=== PATIENT | male | born 1970 | race Caucasian/White ===

== ENCOUNTER 2018-03-23 19:19 | Emergency (ER) | payer OTHER ==
[2018-03-23] MEDS ORDERED: Lidocaine 1%* 5 ML VIAL INJ ONE (19:38)
--- NOTE | 2018-03-23 19:48 | UC ---
Laceration HPI - HPI Summary HPI Summary: 47-year-old male presents with laceration to his dorsal left hand. States he cut it on a piece of sharp metal while working on his car at home. States it was a a lot of bleeding immediately after the injury. He applied a pressure dressing prior to arrival and bleeding is presently under control. Tetanus is up-to-date. Denies any numbness, tingling, or weakness in the hand. - History Of Current Complaint Chief Complaint: UCLaceration Stated Complaint: HAND LACERATION Time Seen by Provider: 03/23/18 19:33 Hx Obtained From: Patient Laceration Location: Hand Mechanism Of Injury: Sharp Trauma Pain Intensity: 0 Aggravating Factors: Nothing Hands: 1 - Linear superficial laceration with triangle-shaped flap at the medial end. Bleeding controlled. No FB noted. Related History: Dominant Hand Right - Allergies/Home Medications Allergies/Adverse Reactions: Allergies Allergy/AdvReac Type Severity Reaction Status Date / Time No Known Allergies Allergy Verified 03/23/18 19:25 PMH/Surg Hx/FS Hx/Imm Hx Previously Healthy: Yes - denies significant past medical history - Surgical History Surgical History: Yes Surgery Procedure, Year, and Place: 2009 Appendectomy - Family History Family History: Noncontributory - Social History Occupation: Employed Full-time Lives: With Family Alcohol Use: Daily Alcohol Amount: 3-4 beers q daily Substance Use Type: None Smoking Status (MU): Heavy Every Day Tobacco Smoker Type: Cigarettes Amount Used/How Often: 1/2 ppd Length of Time of Smoking/Using Tobacco: age 15 yo Have You Smoked in the Last Year: Yes Household Exposure Type: Cigarettes - Immunization History Most Recent Tetanus Shot: 2017 Review of Systems Constitutional: Negative Skin: Other - See history of present illness Motor: Negative Neurovascular: Negative Musculoskeletal: Negative Is Patient Immunocompromised?: No All Other Systems Reviewed And Are Negative: Yes Physical Exam Triage Information Reviewed: Yes Appearance: Well-Appearing, No Pain Distress, Well-Nourished Vital Signs: Initial Vital Signs Temp 97.3 F 03/23/18 19:26 Pulse 92 10/19/18 19:26 Resp 18 03/23/18 19:26 BP 153/92 03/23/18 19:26 Pulse Ox 97 03/23/18 19:26 Respiratory: Positive: No respiratory distress Cardiovascular: Positive: Pulses Normal, Brisk Capillary Refill Musculoskeletal: Positive: Strength Intact, ROM Intact, Other: - Flexion and extension to left index finger intact to resistance. Neurological: Positive: Alert, Other: - Sensation intact distally Skin: Positive: significant lesion(s) - Superficial linear laceration to dorsal left hand. See diagram. Laceration Repair - Laceration Repair 1 Procedure Summary: Procedure note: Laceration repair left dorsal hand Informed consent was obtained before procedure started and the appropriate timeout was taken. The wound was copiously irrigated prior to wound repair. The area was prepped and draped in the usual sterile fashion. Local anesthesia was achieved using 1 ml of lidocaine 1% without epinephrine. The wound was thoroughly explored under a bloodless field. No foreign body or ligamental injury was noted. The wound margins were brought into good alignment. A single horizontal mattress suture was used to secure the skin flap at the medial aspect of the wound using 5-0 Ethilon. A total of 5 interrupted sutures were then placed using 5-0 Ethilon to close the remaining laceration.. Estimated blood loss was minimal. A dressing was applied to the area. Anticipatory guidance, as well as standard post-procedure care was discussed with patient. Return precautions are given. The patient tolerated the procedure well without complications. Patient is to follow up in 10 days for suture removal and evaluation of the laceration. Description: Linear Laceration Size After Repair: Length (cm) - 3 Modified For Repair: No Type Injection: Local Anesthesia Used: 1.0% Lido Cleansing Completed Via Routine Prep: Yes Irrigation With Pressure Irrigation Device: Yes Closure Material: Sutures Closure Method: Single Layer Suture Of: Skin Suture Type: Nylon - 5-0 Ethilon Laceration Course/Dx - Course/Dx Course Of Treatment: 47-year-old male with superficial laceration to left dorsal hand. The wound was thoroughly irrigated and explored under bloodless field. No foreign body or ligamental injury noted. Flap incision at the medial and the laceration was secured using a single horizontal mattress suture at a total of 5 interrupted sutures were used to close the remaining laceration. Patient tolerated procedure well. Is to return in 10 days for suture removal and wound check. Warning symptoms were reviewed with the patient. Verbalizes understanding and agrees with plan of care. - Differential Dx - Laceration/Wound Provider Diagnoses: Laceration left dorsal hand Discharge - Sign-Out/Discharge Documenting (check all that apply): Patient Departure All imaging exams completed and their final reports reviewed: No Studies - Discharge Plan Condition: Stable Disposition: HOME Patient Education Materials: Care For Your Stitches (ED), Laceration (ED) Referrals: Jessica LEIVA,Steve Mullins [Primary Care Provider] - Additional Instructions: The numbing medication that was used to repair your laceration will wear off in about 2-3 hours. You can use an over the counter pain medication such as acetaminophen (Tylenol) or ibuprofen (Advil, Motrin) according to directions as needed for pain. Keep the dressing was applied in the clinic today in place for the next 24 hours. Be sure to keep it dry. After 24 hours you can remove this dressing. Gently clean the wound with a mild soap and water at least once a day. Apply a gauze bandage and change daily or any time it becomes wet or soiled. Your sutures will need to be removed in 10 days. Return here or follow-up with your primary care provider for wound check and suture removal. Your blood pressure was elevated in the clinic today. It is recommended that you follow up with your primary care provider within 4 weeks to have this rechecked. Watch for signs of infection including a fever greater than 100.5 F, redness that spreads, swelling, pus draining from the wound, or pain that is not managed with pain medication. Seek immediate medical attention should any of these symptoms occur. - Billing Disposition and Condition Condition: STABLE Disposition: Home
[2018-03-23 20:20] VITALS: BP 135/88
== END 2018-03-23 20:31 | disposition home or self-care (01) ==
LOC: UCEAST 19:19
DX: S61.412A Laceration without foreign body of left hand, initial encounter (principal); W25.XXXA Contact with sharp glass, initial encounter; Y92.9 Unspecified place or not applicable
CPT/HCPCS: 12002; 99212; G0463